=== PATIENT | male | born 1980 | race Caucasian/White ===

== ENCOUNTER 2021-09-15 17:05 | Outpatient (CLI) | payer MEDICAID | END 2021-09-15 17:06 | disposition critical access hospital (66) | LOC: EMS 17:05 | DX: E10.65 Type 1 diabetes mellitus with hyperglycemia (principal); R41.0 Disorientation, unspecified; R42 Dizziness and giddiness; R63.1 Polydipsia; R35.0 Frequency of micturition | CPT/HCPCS: A0425; A0429; A0999 ==

== ENCOUNTER 2021-09-15 17:28 | Emergency (ER) | payer MEDICAID ==
[2021-09-15] MEDS ORDERED: SODIUM CHLORIDE 0.9% 1,000 ML IV STA ×2 (17:42→18:19)
--- NOTE | 2021-09-15 17:45 | ED Physician Documentation ---
History of Present Illness - Stated complaint Stated Complaint: DIZZY/CONFUSED - Chief complaint Chief Complaint: General - Additonal information Additional information: 41-year-old male who has a history of type 1 insulin-dependent diabetes presents to the emergency department via EMS for concerns that he is entering DKA. He has a history of heavy alcohol use and has been at [facility] detox when he began to have nausea, vomiting feeling dizzy and confused. He is mostly homeless and admits that he is inconsistent with the use of his medications. He admits to drinking a sixpack of beer daily as well as a pint of vodka daily. Typically he takes Lantus 27 units each a.m. as well as insulin via sliding scale Humalog. It is unclear if he has been receiving the insulin while at detox Fingerstick glucose on presentation here is 400. Review of Systems Constitutional: denies: Fever, Chills Eyes: reports: Reviewed and negative Throat: reports: Reviewed and negative Cardiac: reports: Reviewed and negative Respiratory: reports: Reviewed and negative GI: reports: Abdominal Pain, Nausea, Vomiting : reports: Reviewed and negative Skin: reports: Reviewed and negative Musculoskeletal: reports: Reviewed and negative Neurologic: reports: Headache Psychiatric: reports: Reviewed and negative Endocrine: reports: Reviewed and negative PD PAST MEDICAL HISTORY - Allergies Allergies/Adverse Reactions: Allergies Allergy/AdvReac Type Severity Reaction Status Date / Time No Known Drug Allergies Allergy Verified 09/15/21 17:42 PD ED PE NORMAL - Neck Neck: No adenopathy - Respiratory Respiratory: Clear bilaterally PD ED PE EXPANDED - General General: Disheveled, poorly kept (Poor hygiene. Presents in scrubs from the detox facility) - Cardiac Cardiac: Tachy, Radial strong equal, Pedal strong equal, Cap refill < 2 sec. No: Murmur Present - Respiratory Respiratory: Clear to ausultation siauro. No: Distress, Labored - Abdomen Abdomen: Normal Bowel sounds. No: Tender to palpation - Derm Derm: Normal color, Warm and dry - Extremities Extremities: Normal. No: Deformity, Tenderness - Neuro Neuro: Alert and Oriented X 3, CNII-XII intact - GCS Eye Opening: Spontaneous Motor: Obeys Commands Verbal: Oriented Total: 15 Results - Vitals Vitals: Vital Signs - 24 hr 09/15/21 09/15/21 17:39 20:06 Temperature 36.9 C Heart Rate 91 66 Respiratory 16 16 Rate Blood Pressure 113/85 H 100/67 O2 Saturation 98 98 Oxygen O2 Source Room air - Labs Labs: Laboratory Tests 09/15/21 09/15/21 09/15/21 17:54 17:54 17:54 WBC 6.9 RBC 4.24 L Hgb 12.7 L Hct 38.4 L MCV 90.6 MCH 30.0 MCHC 33.1 RDW 11.9 L Plt Count 218 MPV 11.1 Neut # (Auto) 4.3 Lymph # (Auto) 2.1 [place] # (Auto) 0.5 Eos # (Auto) 0.0 Baso # (Auto) 0.0 Absolute Nucleated RBC 0.00 Nucleated RBC % 0.0 Sodium 132 L Potassium 3.8 [place] 97 L Carbon Dioxide 26 Anion Gap 9.0 BUN 19 Creatinine 0.9 Estimated GFR (MDRD) 93 Glucose 413 H POC Whole Bld Glucose Lactic Acid 3.2 H* Calcium 8.7 Total Bilirubin 0.6 AST 29 ALT 22 Alkaline Phosphatase 71 Total Protein 5.9 L Albumin 3.3 Globulin 2.6 Albumin/Globulin Ratio 1.3 Lipase 33 Urine Opiates Screen Ur Oxycodone Screen Urine Methadone Screen Ur Propoxyphene Screen Ur Barbiturates Screen Ur Tricyclics Screen Ur Phencyclidine Scrn Ur Amphetamine Screen U Methamphetamines Scrn U Benzodiazepines Scrn Urine Cocaine Screen U Cannabinoids Screen Ethyl Alcohol < 5.0 Serum Ketones NEGATIVE 09/15/21 09/15/21 09/15/21 19:23 19:48 20:08 WBC RBC Hgb Hct MCV MCH MCHC RDW Plt Count MPV Neut # (Auto) Lymph # (Auto) [place] # (Auto) Eos # (Auto) Baso # (Auto) Absolute Nucleated RBC Nucleated RBC % Sodium Potassium [place] Carbon Dioxide Anion Gap BUN Creatinine Estimated GFR (MDRD) Glucose POC Whole Bld Glucose 165 H Lactic Acid 2.0 Calcium Total Bilirubin AST ALT Alkaline Phosphatase Total Protein Albumin Globulin Albumin/Globulin Ratio Lipase Urine Opiates Screen NEGATIVE Ur Oxycodone Screen NEGATIVE Urine Methadone Screen NEGATIVE Ur Propoxyphene Screen NEGATIVE Ur Barbiturates Screen NEGATIVE Ur Tricyclics Screen NEGATIVE Ur Phencyclidine Scrn NEGATIVE Ur Amphetamine Screen NEGATIVE U Methamphetamines Scrn NEGATIVE U Benzodiazepines Scrn POSITIVE H Urine Cocaine Screen NEGATIVE U Cannabinoids Screen NEGATIVE Ethyl Alcohol Serum Ketones - Rads (name of study) cxr Radiology: Final report received (No acute cardiopulmonary process) PD MEDICAL DECISION MAKING - ED course Complexity details: reviewed results, re-evaluated patient, considered differential, d/w patient ED course: 41-year-old male who is a type 1 insulin-dependent diabetic presents to the emergency department feeling unwell. He was at our local detox facility when he began to feel unwell. He admits that he is not consistent with taking his Lantus or his Humalog. On presentation he had a blood glucose greater than 400. However serum ketones were negative. His bicarb was not elevated. He did have a mildly elevated lactic acid. He was repleted with 2 L of fluid here in the emergency department and given 10 units of insulin. On repeat evaluation his lactate has decreased to 2. His fingerstick glucose is 165. He does not appear to have any signs of withdrawal. His blood alcohol is negative. Urine drug screen is positive for benzodiazepines presumably the medication being administered to him at detox. He is medically cleared to be discharged from the emergency department and can return to detox for further management and treatment of his alcohol abuse. Departure - Departure Disposition: 01 Home, Self Care Clinical Impression: Hyperglycemia, Alcohol abuse Type 1 diabetes Qualifiers: Diabetes mellitus complication status: without complication Qualified Code(s): E10.9 - Type 1 diabetes mellitus without complications Condition: Stable Record reviewed to determine appropriate education?: Yes Comments: Lasha you came to the emergency department because you began feeling unwell while at detox. You were concerned that you are entering DKA in the setting of your type 1 diabetes. On presentation your blood glucose was just over 400 but you were not in DKA. Here in the emergency department we did give you 2 L of IV fluids as well as 10 units of insulin which has normalized your blood sugar. You did have a mildly elevated lactic acid which can be seen in some settings of high blood sugar. This is fully resolved. You are medically cleared to return to detox. You should continue to take the insulin as you otherwise would which you report to be 27 units of Lantus once daily in the morning and Humalog via sliding scale with meals.
[2021-09-15 18:07] LABS: BASOPHILS % (AUTO) 0.4 %; HCT - HEMATOCRIT 38.4 % (42.0-52.0); HGB - HEMOGLOBIN 12.7 g/dL (14.0-18.0); LYMPHOCYTES # (AUTO) 2.1 10^3/uL (1.5-3.5); LYMPHOCYTES % (AUTO) 30.7 %; MEAN CORPUSCULAR HGB CONC 33.1 g/dL (32.0-36.0); MEAN CORPUSCULAR VOLUME 90.6 fL (80.0-94.0); MEAN PLATELET VOLUME 11.1 fL (7.4-11.4); MONOCYTES # (AUTO) 0.5 10^3/uL (0.0-1.0); MONOCYTES % (AUTO) 6.6 %; NEUTROPHILS # (AUTO) 4.3 10^3/uL (1.5-6.6); NEUTROPHILS % (AUTO) 61.9 %; PLT - PLATELET COUNT 218 10^3/uL (130-450); RED BLOOD COUNT 4.24 10^6/uL (4.70-6.10); RED CELL DISTRIBUTION WIDTH 11.9 % (12.0-15.0); WHITE BLOOD COUNT 6.9 x10^3/uL (4.8-10.8)
--- NOTE | 2021-09-15 18:10 | XRAY Report ---
PROCEDURE: Chest 1 View X-Ray INDICATIONS: chest pain TECHNIQUE: One view of the chest was acquired. COMPARISON: FINDINGS: Surgical changes and devices: None. Lungs and pleura: No pleural effusions or pneumothorax. Lungs are clear. Mediastinum: Mediastinal contours appear normal. Heart size is normal. Bones and chest wall: No suspicious bony lesions. Overlying soft tissues appear unremarkable. IMPRESSION: No acute pulmonary process. Reviewed by: Rula Brown MD on 09/15/2021 6:09 PM PDT Approved by: Rula Brown MD on 09/15/2021 6:09 PM PDT Station ID: [id number]
[2021-09-15 18:13] LABS: ALBUMIN 3.3 g/dL (3.2-5.5); ALBUMIN/GLOBULIN RATIO 1.3 (1.0-2.2); ALKALINE PHOSPHATASE 71 IU/L (42-121); ALT ALANINE AMINOTRANSFERASE 22 IU/L (10-60); AST ASPARTATE AMINOTRANSFERASE 29 IU/L (10-42); BILIRUBIN,TOTAL 0.6 mg/dL (0.2-1.0); BUN - BLOOD UREA NITROGEN 19 mg/dL (6-20); CALCIUM 8.7 mg/dL (8.5-10.3); CARBON DIOXIDE - CO2 26 mmol/L (21-32); CHLORIDE 97 mmol/L (101-111); CREATININE 0.9 mg/dL (0.6-1.2); ETOH - ETHANOL < 5.0 mg/dL; GFR - MDRD 93 (>89); GLUCOSE 413 mg/dL (70-100); LIPASE 33 U/L (22-51); POTASSIUM 3.8 mmol/L (3.5-5.0); SODIUM 132 mmol/L (135-145); TOTAL PROTEIN 5.9 g/dL (6.7-8.2)
[2021-09-15 18:21] LABS: KETONES, SERUM (ACETEST) NEGATIVE (NEGATIVE)
[2021-09-15] MEDS ORDERED: INSULIN REGULAR HUMAN 100 UNIT/1 ML 10 ML MDV IVP STA (18:24)
[2021-09-15 19:26] LABS: MUDS CUTOFF CONCENTRATIONS CUTOFF CONC BELOW:
[2021-09-15 19:38] LABS: AMPHETAMINE SCREEN,URINE NEGATIVE (NEGATIVE); BARBITURATE SCREEN,UR NEGATIVE (NEGATIVE); BENZODIAZEPINES SCREEN, URINE POSITIVE (NEGATIVE); COCAINE SCREEN URINE NEGATIVE (NEGATIVE); METHADONE SCREEN, URINE NEGATIVE (NEGATIVE); METHAMPHETAMINES SCREEN, URINE NEGATIVE (NEGATIVE); OPIATE SCREEN, URINE NEGATIVE (NEGATIVE); OXYCODONE SCREEN, URINE NEGATIVE (NEGATIVE); PROPOXYPHENE SCREEN, URINE NEGATIVE (NEGATIVE); THC CANNABINOID SCREEN, URINE NEGATIVE (NEGATIVE); TRICYCLIC ANTIDEPRESSANT,URINE NEGATIVE (NEGATIVE)
[2021-09-15] MEDS ORDERED: LORazepam 1 MG TABLET PO STA (21:14)
[2021-09-15 21:37] VITALS: BP 125/94
== END 2021-09-15 21:38 | disposition home or self-care (01) ==
LOC: ED 17:28
DX: E10.65 Type 1 diabetes mellitus with hyperglycemia (principal); Z79.4 Long term (current) use of insulin; F10.10 Alcohol abuse, uncomplicated
CPT/HCPCS: 36415; 71045; 80053; 80306; 80320; 82009; 83605; 83690; 85025; 96360; 99283; 99284; J1815; J8499

== ENCOUNTER 2022-01-09 19:17 | Outpatient (CLI) | payer MEDICAID | END 2022-01-09 19:18 | disposition critical access hospital (66) | LOC: EMS 19:17 | DX: R45.851 Suicidal ideations (principal) | CPT/HCPCS: A0425; A0429; A0999 ==

== ENCOUNTER 2022-01-09 19:37 | Emergency (ER) | payer MEDICAID ==
[2022-01-09 20:07] LABS: BASOPHILS % (AUTO) 0.1 %; HCT - HEMATOCRIT 38.1 % (42.0-52.0); HGB - HEMOGLOBIN 13.3 g/dL (14.0-18.0); LYMPHOCYTES # (AUTO) 2.4 10^3/uL (1.5-3.5); LYMPHOCYTES % (AUTO) 34.2 %; MEAN CORPUSCULAR HEMOGLOBIN 30.8 pg (27.0-31.0); MEAN CORPUSCULAR HGB CONC 34.9 g/dL (32.0-36.0); MEAN CORPUSCULAR VOLUME 88.2 fL (80.0-94.0); MEAN PLATELET VOLUME 10.8 fL (7.4-11.4); MONOCYTES # (AUTO) 0.6 10^3/uL (0.0-1.0); MONOCYTES % (AUTO) 8.2 %; NEUTROPHILS % (AUTO) 57.2 %; PLT - PLATELET COUNT 247 10^3/uL (130-450); RED BLOOD COUNT 4.32 10^6/uL (4.70-6.10); RED CELL DISTRIBUTION WIDTH 11.6 % (12.0-15.0); WHITE BLOOD COUNT 6.9 x10^3/uL (4.8-10.8)
[2022-01-09 20:08] LABS: MUDS CUTOFF CONCENTRATIONS CUTOFF CONC BELOW:
[2022-01-09 20:11] LABS: BILIRUBIN,URINE NEGATIVE (NEGATIVE); GLUCOSE, URINE (UA) >=1000 mg/dL (NEGATIVE); KETONES,URINE (UA) NEGATIVE (NEGATIVE); LEUKOCYTE ESTERASE, URINE NEGATIVE (NEGATIVE); NITRITE,URINE NEGATIVE (NEGATIVE); OCCULT BLOOD,URINE NEGATIVE (NEGATIVE); PROTEIN,URINE NEGATIVE (NEGATIVE); UROBILINOGEN,URINE 0.2 (NORMAL) E.U./dL (NORMAL)
[2022-01-09 20:13] LABS: CLARITY,URINE CLEAR (CLEAR)
[2022-01-09 20:22] LABS: AMPHETAMINE SCREEN,URINE NEGATIVE (NEGATIVE); BARBITURATE SCREEN,UR NEGATIVE (NEGATIVE); BENZODIAZEPINES SCREEN, URINE POSITIVE (NEGATIVE); COCAINE SCREEN URINE NEGATIVE (NEGATIVE); METHADONE SCREEN, URINE NEGATIVE (NEGATIVE); METHAMPHETAMINES SCREEN, URINE NEGATIVE (NEGATIVE); OPIATE SCREEN, URINE NEGATIVE (NEGATIVE); OXYCODONE SCREEN, URINE NEGATIVE (NEGATIVE); PROPOXYPHENE SCREEN, URINE NEGATIVE (NEGATIVE); THC CANNABINOID SCREEN, URINE NEGATIVE (NEGATIVE); TRICYCLIC ANTIDEPRESSANT,URINE NEGATIVE (NEGATIVE)
[2022-01-09 20:23] LABS: ACETAMINOPHEN < 10 ug/mL (10-30); ALBUMIN 3.5 g/dL (3.2-5.5); ALBUMIN/GLOBULIN RATIO 1.3 (1.0-2.2); ALKALINE PHOSPHATASE 79 IU/L (42-121); ALT ALANINE AMINOTRANSFERASE 25 IU/L (10-60); AST ASPARTATE AMINOTRANSFERASE 40 IU/L (10-42); BILIRUBIN,TOTAL 0.5 mg/dL (0.2-1.0); BUN - BLOOD UREA NITROGEN 16 mg/dL (6-20); CALCIUM 9.1 mg/dL (8.5-10.3); CARBON DIOXIDE - CO2 29 mmol/L (21-32); CHLORIDE 98 mmol/L (101-111); CREATININE 0.8 mg/dL (0.6-1.2); ETOH - ETHANOL < 5.0 mg/dL; GFR - MDRD 107 (>89); GLUCOSE 325 mg/dL (70-100); LIPASE 36 U/L (22-51); POTASSIUM 4.3 mmol/L (3.5-5.0); SALICYLATE < 6.0 mg/dL; SODIUM 134 mmol/L (135-145); TOTAL PROTEIN 6.1 g/dL (6.7-8.2)
--- NOTE | 2022-01-09 20:42 | ED Physician Documentation ---
PD HPI MHE - Stated complaint Stated Complaint: SI - Chief complaint Chief Complaint: MHE - History obtained from History obtained from: Patient, EMS - History of Present Illness Primary symptom: Suicidal ideation Pain level max: 0 Pain level now: 0 Contributing factors: Substance abuse - ETOH, Substance abuse - drugs - Additional information Additional information: 41-year-old male presents to the emergency department complaining of increasing paranoid thoughts. He states that he has a longstanding history of schizophrenia. He is on Zyprexa 15 mg by mouth twice daily. He states he has not been taking his medication regularly but did restart the medication about 6 days ago when the under detox for methamphetamine and alcohol abuse. He states that the alcohol seems to quiet the voices in his head. Patient states that he has passive suicidal thoughts but no active suicidal thoughts. He has never attempted suicide. He has been hospitalized for psychotic symptoms in the past. He is from [place]. He has been living with his father in [place]. has been off meth and etoh for 6 days. Review of Systems Ten Systems: 10 systems reviewed and negative Constitutional: denies: Fever, Chills Respiratory: denies: Cough GI: denies: Abdominal Pain, Nausea, Vomiting, Diarrhea Skin: denies: Rash Musculoskeletal: denies: Neck pain, Back pain Neurologic: denies: Headache PD PAST MEDICAL HISTORY - Past Medical History Past Medical History: Yes Endocrine/Autoimmune: Type 1 diabetes Psych: Depression, Anxiety - Past Surgical History Past Surgical History: No - Allergies Allergies/Adverse Reactions: Allergies Allergy/AdvReac Type Severity Reaction Status Date / Time No Known Drug Allergies Allergy Verified 01/09/22 19:41 - Social History Does the pt smoke?: No Smoking Status: Never smoker Does the pt drink ETOH?: Yes Does the pt have substance abuse?: Yes - Immunizations Immunizations: TDAP >10years/unknown PD ED PE NORMAL - Vitals Vital signs reviewed: Yes - General General: Alert and oriented X 3, No acute distress - HEENT HEENT: PERRL, Moist mucous membranes - Neck Neck: Supple, no meningeal sign - Cardiac Cardiac: RRR, Strong equal pulses - Respiratory Respiratory: No respiratory distress, Clear bilaterally - Abdomen Abdomen: Soft, Non tender, Non distended - Derm Derm: Warm and dry - Extremities Extremities: No edema - Neuro Neuro: Alert and oriented X 3 - Psych Psych: Normal mood, Normal affect Results - Vitals Vitals: Vital Signs - 24 hr 01/09/22 19:41 Temperature 36.7 C Heart Rate 97 Respiratory 16 Rate Blood Pressure 127/84 H O2 Saturation 100 Oxygen O2 Source Room air - Labs Labs: Laboratory Tests 01/09/22 01/09/22 01/09/22 20:00 20:00 20:00 WBC 6.9 RBC 4.32 L Hgb 13.3 L Hct 38.1 L MCV 88.2 MCH 30.8 MCHC 34.9 RDW 11.6 L Plt Count 247 MPV 10.8 Neut # (Auto) 4.0 Lymph # (Auto) 2.4 [place] # (Auto) 0.6 Eos # (Auto) 0.0 Baso # (Auto) 0.0 Absolute Nucleated RBC 0.00 Nucleated RBC % 0.0 Sodium 134 L Potassium 4.3 [place] 98 L Carbon Dioxide 29 Anion Gap 7.0 BUN 16 Creatinine 0.8 Estimated GFR (MDRD) 107 Glucose 325 H Calcium 9.1 Total Bilirubin 0.5 AST 40 ALT 25 Alkaline Phosphatase 79 Total Protein 6.1 L Albumin 3.5 Globulin 2.6 Albumin/Globulin Ratio 1.3 Lipase 36 TSH 8.93 H Urine Color Urine Clarity Urine pH Ur Specific Mallory Urine Protein Urine Glucose (UA) Urine Ketones Urine Occult Blood Urine Nitrite Urine Bilirubin Urine Urobilinogen Ur Leukocyte Esterase Ur Microscopic Review Urine Culture Comments Salicylates < 6.0 Urine Opiates Screen Ur Oxycodone Screen Urine Methadone Screen Ur Propoxyphene Screen Acetaminophen < 10 L Ur Barbiturates Screen Ur Tricyclics Screen Ur Phencyclidine Scrn Ur Amphetamine Screen U Methamphetamines Scrn U Benzodiazepines Scrn Urine Cocaine Screen U Cannabinoids Screen Ethyl Alcohol < 5.0 SARS-CoV-2 (PCR) 01/09/22 01/09/22 20:00 20:45 WBC RBC Hgb Hct MCV MCH MCHC RDW Plt Count MPV Neut # (Auto) Lymph # (Auto) [place] # (Auto) Eos # (Auto) Baso # (Auto) Absolute Nucleated RBC Nucleated RBC % Sodium Potassium [place] Carbon Dioxide Anion Gap BUN Creatinine Estimated GFR (MDRD) Glucose Calcium Total Bilirubin AST ALT Alkaline Phosphatase Total Protein Albumin Globulin Albumin/Globulin Ratio Lipase TSH Urine Color YELLOW Urine Clarity CLEAR Urine pH 6.0 Ur Specific Mallory <=1.005 Urine Protein NEGATIVE Urine Glucose (UA) >=1000 H Urine Ketones NEGATIVE Urine Occult Blood NEGATIVE Urine Nitrite NEGATIVE Urine Bilirubin NEGATIVE Urine Urobilinogen 0.2 (NORMAL) Ur Leukocyte Esterase NEGATIVE Ur Microscopic Review NOT INDICATED Urine Culture Comments NOT INDICATED Salicylates Urine Opiates Screen NEGATIVE Ur Oxycodone Screen NEGATIVE Urine Methadone Screen NEGATIVE Ur Propoxyphene Screen NEGATIVE Acetaminophen Ur Barbiturates Screen NEGATIVE Ur Tricyclics Screen NEGATIVE Ur Phencyclidine Scrn NEGATIVE Ur Amphetamine Screen NEGATIVE U Methamphetamines Scrn NEGATIVE U Benzodiazepines Scrn POSITIVE H Urine Cocaine Screen NEGATIVE U Cannabinoids Screen NEGATIVE Ethyl Alcohol SARS-CoV-2 (PCR) NOT DETECTED PD MEDICAL DECISION MAKING - ED course Complexity details: reviewed results, re-evaluated patient, considered differential, d/w patient ED course: Patient is medically clear for psychiatric care. We will consult telepsychiatry for recommendations. Patient signed out to the [facility] emergency department physician. Departure - Departure Clinical Impression: Hyperglycemia Schizophrenia Qualifiers: Schizophrenia type: unspecified Qualified Code(s): F20.9 - Schizophrenia, unspecified Condition: Stable
--- NOTE | 2022-01-10 05:33 | TELEPSYCH PHYS NOTE ---
Telepsych Consultation Note Consult: Array Name: Lasha Wallace : 1980 Date and Time: 01/10/2022 7:57:19 AM Location of the patient: [facility] [address] [facility] ED Location of the doctor: [place] Length of consult: 20 min This evaluation was conducted via video telepsychiatry with the assistance of onsite staff Reason for consult: psychosis Requested by: Dr. Bullard History of Present Illness: ? Parts of this note were dictated using voice recognition software and may contain small irregularities and grammatical errors which are unintentional. ? The identity of the patient was verified. The patient was then informed about the process of utilizing telemedicine for evaluation and treatment. Discussed the ability to Opt-out of the tele medicine encounter, ask questions, security issues, and sharing information. The patient consented to proceed with the tele medicine encounter. This evaluation was conducted via video telepsychiatry with assistance of onsite staff ? 41 year old male with a history of substance use disorder in reported schizophrenia who presented to the emergency room with increasing suicidal ideations and paranoia. The patient reports that he's been super paranoid .he reports that he has bad anxiety. Feels as though he's being followed and they're trying to kill him. He reports that he is a targeted individual for the last eight years period he reports the paranoia is for the last eight years period he reports that he has used methamphetamine for the past seven years after he moved back from [place]. He reports that his appetite is mediocre. Energy and motivation is mediocre. He reports that he's been having suicidal thoughts as he would rather end it himself than let someone kill him. He reports that the thoughts he has no real plans. But he's been thinking about taking medications. He hears voices sometimes telling him not to kill himself and to stay alive and he needs to stay alive. He denies seeing things. He reports he's been on Zyprexa 15MG twice daily for the last five years period he reports that he hasn't been able to function he just got out of detox. He does admit that he has been to detox and rehab multiple times and left early period this last time he was there for six days and he was having these thoughts and they sent him to the emergency room period he reports that he needs something for his anxiety. He reports no one ever believes him about his anxiety. . Collateral Contacted: No Reason for not contacting the collateral:None available Sleep issues?: Yes Sleep Quantity: decreased. Sleep Quality: restless Psychiatric History/Treatment History: Past diagnoses: substance use , paranoia , delusions Hospitalizations: Yes Description: 6 or 7 psychiatric admissions , last one [facility] 3-4 months a go Current Treatment:Yes Medication management: Yes Medications: primary care physician Therapy: No Suicide Assessment: PSS-3: 1) Over the past 2 weeks have you felt down, depressed or hopeless? Yes 2) Over the past 2 weeks have you had thoughts of killing yourself? Yes 3) Have you ever in your life attempted to kill yourself? No Within the past 6 months? PSS-3 Secondary Screen: 1) Positive on PSS-3 questions 2 & 3 active SI with a past attempt? Yes 2) Have you been thinking about how you might kill yourself? Yes 3) Have you had some intention of acting on your thoughts? No 4) Lifetime psychiatric hospitalization? Yes 5) Has drinking or substance abuse ever been a problem for you? Yes 6) Current irritability, agitation, or aggression? Yes PSS-3 Secondary Screen Scoring: Severe Notes: severe Mild (0-2) No current attempt and no plan/intent Moderate (3-4) No current attempt, Plan OR intent but not both Severe (5-6) Current Attempt with Plan AND intent [facility]-based Safety Assessment: Risk Factors Stressors: mental illness, addiction Attempts/Self-injury: No Impulsivity:Yes Description: Drug/Alcohol History:Yes Description: denies smoking, drinks 6 pack and a pint of vodka daily, meth daily for 5 years last use was 1 week ago, marijuana and some opiates, xanax Trauma History:No Access to firearms:No HI/Violence/Property destruction:No Legal: No Family Psych History:Yes Description: father- alcohol Family History of suicide:No Protective Factors: Can handle stress well? Jewish? Yes Description: baptism External: Social supports/ Therapeutic relationships: Yes Description: mother Relationship history: single Living situation: homeless 6 months and stays with his dad when he can - once or twice a week Employment: Yes Description: [employer] Education: GED - dropped out 10th grade Responsibility to family/children/work: No Future orientation:No Health History: Medical History: type 1 diabetic hashimotos high cholesterol Medications & Freq: insulin levothyroxine olanzapine 15mg po BID Allergies: nkda Mental Status Exam: Appearance and Attire: Good eye contact Psychomotor agitation: No abnormality Attitude and behavior: Cooperative Speech: No abnormality, Mood: Depressed Affect: Thought process: Coherent Thought content: Suicidal ideation, Homicidal ideation, Guilt, Worthlessness Perception: Auditory hallucinations, No visual hallucinations Intel: Average Abstract: Appropriate Language: No abnormality Orientation: Oriented x 4 Sense: Distractible Knowledge: Appropriate for education and socioeconomic status Memory: Intact Insight: Lack of awareness of problems, Failure to recognize benefits of treatment, Lack of motivation to change health risk behaviors, Severe impairment Judgement: Severe impairment, Impaired in interactions with others, Impaired in response and decision making, Impaired in responses to current situation and behavior, Impaired in treatment compliance Gait: No abnormality Impression/Risk Assessment: Current Suicide Risk Elevated? Yes Current Violence Risk Elevated? No Issues with ability to care for self? Yes Summary: 41 year old male with a history of substance use disorder and reported psychosis who presented to the emergency room with worsening psychosis and suicidal ideations with the thoughts of overdosing. He reports no true intent. He does report he was at detox and had increasing auditory hallucinations which usually he reports makes him want to bolt from detox and they sent him to the emergency room. He reports increased anxiety. Decreased sleep energy and motivation. At this time he is moderate to severe risk for suicide in will recommend inpatient psychiatric hospitalization voluntary. Diagnosis: CPT Codes: 27269 - Psychiatric Diagnostic Evaluation with Medical Services Treatment Plan: General: Level of Care: inpatient Psychiatric Clearance: No Observation level 1:1 needed?: Yes Notes: close observation per ED protocol Pharmacological: zyprexa 15mg po BID buspirone 5mg po TID Patient psychotic?No Therapy: supportive Follow up needed while in the hospital?: Yes Number of times: in 48 hours Discussed plan with onsite senior project leader/team lead: Yes Who Dr. Zuñiga Other: List names and roles of persons who participated in consult: Dr. Zuñiga
--- NOTE | 2022-01-10 05:39 | ED Physician Documentation ---
ED Addendum - Addendum Addendum: 01/10/22 05:38 Patient received a signout from outgoing physician, please see their do cumentation for further detail. Patient monitored carefully throughout my shift. Was reevaluated on multiple occasions and found to be resting comfortably and in no acute distress. Patient underwent telemetry behavioral health evaluation at approximately 05 30. Recommendation at this time is for voluntary inpatient treatment. Ordered for recommended medications including buspirone 5 mg 3 times daily and Zyprexa 15 mg twice daily. At this time will be signing the patient out to the oncoming physician pending placement. Please see their documentation for further detail.
[2022-01-10] MEDS ORDERED: OLANZapine ODT 5 MG TABLET TL SCH (06:00)
[2022-01-10] MEDS ORDERED: INSULIN REGULAR HUMAN 100 UNIT/1 ML 10 ML MDV SUBQ STA (08:28)
[2022-01-10] MEDS ORDERED: busPIRone 5 MG TABLET PO SCH (09:00)
[2022-01-10 11:55] VITALS: BP 113/71
--- NOTE | 2022-01-10 12:30 | ED Physician Documentation ---
ED Addendum - Addendum Addendum: 01/10/22 12:25 Patient was reportedly stable overnight with no events. He states he is feeling better this morning. Does not currently endorse suicidal or homicidal ideation. I spoke with the nurse practitioner at [facility], [place], we reviewed the patient's labs and chart. Reviewed the telepsychiatry recommendations as well. Patient does have history of hypothyroidism and is supposed to be on Synthroid, they did restart this 6 days ago, but likely the reason for his mild TSH elevation. Patient will be discharged back to [facility]. This document was made in part using voice recognition software. While efforts are made to proofread this document, sound alike and grammatical errors may occur. Departure - Departure Disposition: 01 Home, Self Care Clinical Impression: Hyperglycemia Schizophrenia Qualifiers: Schizophrenia type: unspecified Qualified Code(s): F20.9 - Schizophrenia, unspecified Condition: Stable Instructions: ED Schizophrenia General Comments: You are being discharged back to [facility] to complete your rehab. Please return if you worsen. Crisis Line and is available to talk to someone [email or web address] is also available to chat with someone online if you prefer. There are also many resources on this website and apps for your phone to help with your mental health You can also text the word START to [phone] to chat with someome via text.
== END 2022-01-10 12:39 | disposition home or self-care (01) ==
LOC: EDUNIT# → ED 19:37
DX: F20.9 Schizophrenia, unspecified (principal); E10.65 Type 1 diabetes mellitus with hyperglycemia; Z20.822 Contact with and (suspected) exposure to COVID-19
CPT/HCPCS: 36415; 80053; 80306; 80307; 80320; 80329; 81003; 83690; 84443; 85025; 87635; 99283; A9270; G0425; J1815; Q3014; 81001; 87086

== ENCOUNTER 2022-01-10 20:25 | Outpatient (CLI) | payer MEDICAID | END 2022-01-10 20:26 | disposition critical access hospital (66) | LOC: EMS 20:25 | DX: R44.3 Hallucinations, unspecified (principal); R45.1 Restlessness and agitation; R46.89 Other symptoms and signs involving appearance and behavior; E10.65 Type 1 diabetes mellitus with hyperglycemia; Z78.1 Physical restraint status | CPT/HCPCS: A0425; A0429 ==

== ENCOUNTER 2022-01-10 20:47 | Emergency (ER) | payer MEDICAID ==
[2022-01-10 20:57] VITALS: BP 119/71
--- NOTE | 2022-01-10 20:57 | ED Physician Documentation ---
History of Present Illness - Stated complaint Stated Complaint: MHE - Chief complaint Chief Complaint: MHE - History obtained from History obtained from: Patient - History of Present Illness Timing: Prior to arrival - Additonal information Additional information: Per ANDREINA - 24 visits to 9 different facilities in last 12 months 41-year-old male presents by EMS for delusions and worsening paranoia. Patient was seen here earlier today for same complaint, he was discharged and sent to a crisis center, however he arrived too late and could not be taken in. He was banging on the door and 911 was called. Vital signs unremarkable en route. On arrival patient stated his paranoia was worsening. Denied substance use today. He could not remember where he was when EMS picked him up. Review of Systems Ten Systems: 10 systems reviewed and negative Constitutional: denies: Fever Cardiac: denies: Chest pain / pressure, Palpitations, Calf pain Respiratory: denies: Dyspnea, Cough, Wheezing GI: denies: Abdominal Pain, Nausea, Vomiting Psychiatric: reports: Hallucinations, Delusions, Other (pananoia). denies: Depressed, Suicidal, Homicidal, Anxiety PD PAST MEDICAL HISTORY - Past Medical History Past Medical History: Yes Endocrine/Autoimmune: Type 1 diabetes Psych: Depression, Anxiety - Past Surgical History Past Surgical History: No - Present Medications Home Medications: Ambulatory Orders Medication Instructions Recorded Confirmed Insulin Glargine [Lantus Solostar] 28 units SQ DAILY PM 01/10/22 01/10/22 Insulin Lispro [Insulin Lispro 7 units SQ TID 01/10/22 01/10/22 Junior King] Levothyroxine [Synthroid] 175 mcg PO DAILY 01/10/22 01/10/22 cloNIDine [Catapres] 0.1 mg PO DAILY 01/10/22 01/10/22 hydrOXYzine HCL [Hydroxyzine HCl] 50 mg PO DAILY 01/10/22 01/10/22 - Allergies Allergies/Adverse Reactions: Allergies Allergy/AdvReac Type Severity Reaction Status Date / Time No Known Drug Allergies Allergy Verified 01/10/22 20:50 - Social History Does the pt smoke?: No Smoking Status: Never smoker Does the pt drink ETOH?: Yes Does the pt have substance abuse?: Yes - Immunizations Immunizations: TDAP >10years/unknown PD ED PE NORMAL - Vitals Vital signs reviewed: Yes - General General: No acute distress, Well developed/nourished, Other (AOx2) - Cardiac Cardiac: RRR, No murmur, Strong equal pulses - Abdomen Abdomen: Soft, Non tender, Non distended - Derm Derm: Normal color, Warm and dry, No rash - Extremities Extremities: No deformity, No tenderness to palpate, Normal ROM s pain, No edema - Psych Psych: Normal mood, Other (flat affect, paranoid) Results - Vitals Vitals: Vital Signs - 24 hr 01/10/22 01/10/22 01/11/22 20:50 20:56 00:30 Temperature 36.7 C 36.7 C Heart Rate 98 98 Respiratory 16 16 14 Rate Blood Pressure 119/71 119/71 O2 Saturation 95 95 01/11/22 02:29 Temperature Heart Rate Respiratory 13 Rate Blood Pressure O2 Saturation Oxygen O2 Source Room air - Labs Labs: Laboratory Tests 01/10/22 01/10/22 01/10/22 21:10 21:18 21:18 WBC 6.2 RBC 4.68 L Hgb 14.2 Hct 41.8 L MCV 89.3 MCH 30.3 MCHC 34.0 RDW 11.9 L Plt Count 286 MPV 10.5 Neut # (Auto) 3.3 Lymph # (Auto) 2.5 [place] # (Auto) 0.3 Eos # (Auto) 0.0 Baso # (Auto) 0.0 Absolute Nucleated RBC 0.00 Nucleated RBC % 0.0 Sodium 138 Potassium 4.2 Chloride 99 L Carbon Dioxide 28 Anion Gap 11.0 BUN 11 Creatinine 1.1 Estimated GFR (MDRD) 74 L Glucose 569 H* Calcium 9.2 Total Bilirubin 0.5 AST 28 ALT 25 Alkaline Phosphatase 81 Total Protein 6.8 Albumin 3.9 Globulin 2.9 Albumin/Globulin Ratio 1.3 Lipase 38 TSH Urine Color Urine Clarity Urine pH Ur Specific [place] Urine Protein Urine Glucose (UA) Urine Ketones Urine Occult Blood Urine Nitrite Urine Bilirubin Urine Urobilinogen Ur Leukocyte Esterase Ur Microscopic Review Urine Culture Comments Salicylates < 6.0 Urine Opiates Screen Ur Oxycodone Screen Urine Methadone Screen Ur Propoxyphene Screen Acetaminophen < 10 L Ur Barbiturates Screen Ur Tricyclics Screen Ur Phencyclidine Scrn Ur Amphetamine Screen U Methamphetamines Scrn U Benzodiazepines Scrn Urine Cocaine Screen U Cannabinoids Screen Ethyl Alcohol 298.3 SARS-CoV-2 (PCR) NOT DETECTED 01/10/22 01/10/22 01/11/22 21:18 23:00 06:19 WBC RBC Hgb Hct MCV MCH MCHC RDW Plt Count MPV Neut # (Auto) Lymph # (Auto) [place] # (Auto) Eos # (Auto) Baso # (Auto) Absolute Nucleated RBC Nucleated RBC % Sodium Potassium Chloride Carbon Dioxide Anion Gap BUN Creatinine Estimated GFR (MDRD) Glucose Calcium Total Bilirubin AST ALT Alkaline Phosphatase Total Protein Albumin Globulin Albumin/Globulin Ratio Lipase TSH 5.62 H Urine Color YELLOW Urine Clarity CLEAR Urine pH 6.0 Ur Specific [place] <=1.005 Urine Protein NEGATIVE Urine Glucose (UA) >=1000 H Urine Ketones NEGATIVE Urine Occult Blood NEGATIVE Urine Nitrite NEGATIVE Urine Bilirubin NEGATIVE Urine Urobilinogen 0.2 (NORMAL) Ur Leukocyte Esterase NEGATIVE Ur Microscopic Review NOT INDICATED Urine Culture Comments NOT INDICATED Salicylates Urine Opiates Screen NEGATIVE Ur Oxycodone Screen NEGATIVE Urine Methadone Screen NEGATIVE Ur Propoxyphene Screen NEGATIVE Acetaminophen Ur Barbiturates Screen NEGATIVE Ur Tricyclics Screen NEGATIVE Ur Phencyclidine Scrn NEGATIVE Ur Amphetamine Screen NEGATIVE U Methamphetamines Scrn NEGATIVE U Benzodiazepines Scrn NEGATIVE Urine Cocaine Screen NEGATIVE U Cannabinoids Screen NEGATIVE Ethyl Alcohol 105.6 SARS-CoV-2 (PCR) PD MEDICAL DECISION MAKING - ED course Complexity details: reviewed old records, reviewed results, re-evaluated patient, considered differential ED course: Patient presenting to the ED due to paranoia, he arrived too late in the day to be excepted back to his rehab facility. Patient was initially calm and cooperative with staff, however a fellow psychiatric patient began taunting and goading him. Patient then became agitated and verbally abusive, screaming at staff and threatening them. He was given Haldol, Ativan, and Benadryl for sedation Patient slept throughout the night. [facility] had apparently sent patient in yesterday becuase he was violent and threatening to staff, which is consistent with the behavior exhibited here. Will contact [facility], however it appears as though patient is well known in other counties for similar presentations and violent, threatening outbursts. Will repeat alcohol level and contact [facility]. Care of patient to be signed out to oncoming ED provider. Final disposition pending their evaluation and judgment. Departure - Departure Clinical Impression: Psychiatric symptoms, Aggressive behavior, Hyperglycemia, Alcohol intoxication Instructions: ED Alcohol Intoxication, Schizophrenia
[2022-01-10 21:27] LABS: BASOPHILS % (AUTO) 0.3 %; HCT - HEMATOCRIT 41.8 % (42.0-52.0); HGB - HEMOGLOBIN 14.2 g/dL (14.0-18.0); LYMPHOCYTES # (AUTO) 2.5 10^3/uL (1.5-3.5); LYMPHOCYTES % (AUTO) 39.8 %; MEAN CORPUSCULAR HEMOGLOBIN 30.3 pg (27.0-31.0); MEAN CORPUSCULAR VOLUME 89.3 fL (80.0-94.0); MEAN PLATELET VOLUME 10.5 fL (7.4-11.4); MONOCYTES # (AUTO) 0.3 10^3/uL (0.0-1.0); MONOCYTES % (AUTO) 5.5 %; NEUTROPHILS # (AUTO) 3.3 10^3/uL (1.5-6.6); NEUTROPHILS % (AUTO) 53.9 %; PLT - PLATELET COUNT 286 10^3/uL (130-450); RED BLOOD COUNT 4.68 10^6/uL (4.70-6.10); RED CELL DISTRIBUTION WIDTH 11.9 % (12.0-15.0); WHITE BLOOD COUNT 6.2 x10^3/uL (4.8-10.8)
[2022-01-10] MEDS ORDERED: HALOPERIDOL 5 MG/ML VIAL IM STA (21:29)
[2022-01-10] MEDS ORDERED: LORazepam 2 MG/ML VIAL IVP STA (21:29)
[2022-01-10 21:42] LABS: ACETAMINOPHEN < 10 ug/mL (10-30); ALBUMIN 3.9 g/dL (3.2-5.5); ALBUMIN/GLOBULIN RATIO 1.3 (1.0-2.2); ALKALINE PHOSPHATASE 81 IU/L (42-121); ALT ALANINE AMINOTRANSFERASE 25 IU/L (10-60); AST ASPARTATE AMINOTRANSFERASE 28 IU/L (10-42); BILIRUBIN,TOTAL 0.5 mg/dL (0.2-1.0); BUN - BLOOD UREA NITROGEN 11 mg/dL (6-20); CALCIUM 9.2 mg/dL (8.5-10.3); CARBON DIOXIDE - CO2 28 mmol/L (21-32); CHLORIDE 99 mmol/L (101-111); CREATININE 1.1 mg/dL (0.6-1.2); ETOH - ETHANOL 298.3 mg/dL; GFR - MDRD 74 (>89); LIPASE 38 U/L (22-51); POTASSIUM 4.2 mmol/L (3.5-5.0); SALICYLATE < 6.0 mg/dL; SODIUM 138 mmol/L (135-145); TOTAL PROTEIN 6.8 g/dL (6.7-8.2)
[2022-01-10] MEDS ORDERED: diphenhydrAMINE INJ 50 MG/ML VIAL IM STA (21:42)
[2022-01-10 21:43] LABS: GLUCOSE 569 mg/dL (70-100)
[2022-01-10] MEDS ORDERED: INSULIN REGULAR HUMAN 100 UNIT/1 ML 10 ML MDV SUBQ STA (22:10)
[2022-01-10 23:05] LABS: MUDS CUTOFF CONCENTRATIONS CUTOFF CONC BELOW:
[2022-01-10 23:08] LABS: BILIRUBIN,URINE NEGATIVE (NEGATIVE); GLUCOSE, URINE (UA) >=1000 mg/dL (NEGATIVE); KETONES,URINE (UA) NEGATIVE (NEGATIVE); LEUKOCYTE ESTERASE, URINE NEGATIVE (NEGATIVE); NITRITE,URINE NEGATIVE (NEGATIVE); OCCULT BLOOD,URINE NEGATIVE (NEGATIVE); PROTEIN,URINE NEGATIVE (NEGATIVE); UROBILINOGEN,URINE 0.2 (NORMAL) E.U./dL (NORMAL)
[2022-01-10 23:20] LABS: AMPHETAMINE SCREEN,URINE NEGATIVE (NEGATIVE); BARBITURATE SCREEN,UR NEGATIVE (NEGATIVE); BENZODIAZEPINES SCREEN, URINE NEGATIVE (NEGATIVE); CLARITY,URINE CLEAR (CLEAR); COCAINE SCREEN URINE NEGATIVE (NEGATIVE); METHADONE SCREEN, URINE NEGATIVE (NEGATIVE); METHAMPHETAMINES SCREEN, URINE NEGATIVE (NEGATIVE); OPIATE SCREEN, URINE NEGATIVE (NEGATIVE); OXYCODONE SCREEN, URINE NEGATIVE (NEGATIVE); PROPOXYPHENE SCREEN, URINE NEGATIVE (NEGATIVE); THC CANNABINOID SCREEN, URINE NEGATIVE (NEGATIVE); TRICYCLIC ANTIDEPRESSANT,URINE NEGATIVE (NEGATIVE)
[2022-01-11] MEDS ORDERED: INSULIN REGULAR HUMAN 100 UNIT/1 ML 10 ML MDV SUBQ STA (11:21)
[2022-01-11] MEDS ORDERED: INSULIN LISPRO 300 UNIT/3 ML PEN SUBQ SCH (12:00)
--- NOTE | 2022-01-11 13:52 | ED Physician Documentation ---
ED Addendum - Addendum Addendum: 01/11/22 13:52 Seen by social work. Patient is voluntary and declines inpatient treatment although that was recommended. There is no indication for involuntary treatment. Disposition: Discharged home Condition: Stable
[2022-01-11] MEDS ORDERED: INSULIN ASPART 100 UNIT/1 ML 10 ML MDV SUBQ SCH (14:00)
[2022-01-11] MEDS ORDERED: INSULIN GLARGINE 300 UNIT/3 ML PEN SUBQ SCH (21:00)
[2022-01-11] MEDS ORDERED: INSULIN GLARGINE-YFGN 300 UNIT/3 ML PEN SUBQ SCH (21:00)
== END 2022-01-11 14:12 | disposition home or self-care (01) ==
LOC: EDUNIT# → ED 20:47
DX: F22 Delusional disorders (principal); F10.129 Alcohol abuse with intoxication, unspecified; E10.65 Type 1 diabetes mellitus with hyperglycemia; Z79.4 Long term (current) use of insulin
CPT/HCPCS: 36415; 80053; 80306; 80307; 80320; 80329; 81003; 83690; 84443; 85025; 87635; 96372; 96374; 99283; A9270; J1200; J1815; J2060; 81001; 87086